=== PATIENT | male | born 1965 | race Caucasian/White ===

== ENCOUNTER 2019-07-27 07:32 | Day surgery (SDC) | payer OTHER ==
[~2019-07-27] VITALS: Ht 175.3 cm; Wt 175.0 kg
[~2019-07-27 07:32] MED LIST: CEPH500 PO; HYDACE5 PO; IBUP800 PO
== END 2019-07-27 09:44 | disposition home or self-care (01) ==
LOC: ORSCSDS 07:32
PROVIDERS: Internal Medicine Gastroenterology
PROC: 0DBL8ZX Excision of Transverse Colon, Via Natural or Artificial Opening Endoscopic, Diagnostic (ICD-10-PCS; principal; 2019-07-27 08:45)
DX: K92.1 Melena (principal); R10.32 Left lower quadrant pain; R19.4 Change in bowel habit; D12.3 Benign neoplasm of transverse colon; K57.30 Diverticulosis of large intestine without perforation or abscess without bleeding; K64.8 Other hemorrhoids; Z86.010 Personal history of colon polyps; Z80.0 Family history of malignant neoplasm of digestive organs; Z83.71 Family history of colonic polyps
CPT/HCPCS: 88305; J0330; J0461; J2405; J2704; J7120

== ENCOUNTER 2020-04-16 20:40 | Emergency (ER) | payer OTHER ==
[~2020-04-16] VITALS: Ht 172.7 cm; Wt 83.9 kg
== END 2020-04-16 22:42 | disposition home or self-care (01) ==
LOC: ER 20:40
DX: S01.01XA Laceration without foreign body of scalp, initial encounter (principal); Z23 Encounter for immunization; Z88.8 Allergy status to other drugs, medicaments and biological substances; Z88.6 Allergy status to analgesic agent; W01.10XA Fall on same level from slipping, tripping and stumbling with subsequent striking against unspecified object, initial encounter
CPT/HCPCS: 12002; 70450; 72125; 90471; 90714; 99283-25

== ENCOUNTER 2020-04-25 13:59 | Emergency (ER) | payer OTHER ==
[~2020-04-25] VITALS: Ht 175.3 cm; Wt 69.8 kg
== END 2020-04-25 14:06 | disposition home or self-care (01) ==
LOC: ER 13:59
DX: S01.311D Laceration without foreign body of right ear, subsequent encounter (principal); Z88.6 Allergy status to analgesic agent; Z88.8 Allergy status to other drugs, medicaments and biological substances; W22.8XXD Striking against or struck by other objects, subsequent encounter